=== PATIENT | male | born 1970 | race Caucasian/White ===

== ENCOUNTER 2016-11-20 18:17 | Emergency (ER) | payer MEDICARE ==
[~2016-11-20] VITALS: Ht 190.5 cm; Wt 90.7 kg
[2016-11-20] MEDS ORDERED: GENVOYA TABLET1 EACH PO (18:41)
[2016-11-20] MEDS ORDERED: KLONOPIN2 MG PO (18:41)
[2016-11-20] MEDS ORDERED: VENTOLIN HFA18 GM INH (18:41)
[2016-11-20] MEDS ORDERED: DULERA 100 MCG/13 GM INH (18:41)
[2016-11-20 18:49] VITALS: BP 139/92
[2016-11-20] MEDS ORDERED: CLARITIN-D 241 EACH PO (19:21)
[2016-11-20] MEDS ORDERED: FLONASE ALLERG9.9 ML NS (19:21)
[2016-11-20 19:25] VITALS: BP 139/92
--- NOTE | 2016-11-20 21:30 | Emergency Room Report ---
History of Present Illness General Chief Complaint: Upper Respiratory Illness Source: Patient (VERONICA BOTELLO) Present Illness HPI The patient is a 45-year-old male with a history of HIV, asthma, and seasonal allergies presenting for nasal congestion and cough. The cough is described as productive and produces a white sputum. The patient denies any other symptoms including fever, chills, headache, neck pain or stiffness, rash, shortness of breath, chest pain, night sweats, myalgia. Patient denies any sick contacts or recent travel. (VERONICA [email or web address]) Allergies: Coded Allergies: CIPROFLOXACIN (Verified Allergy, Unknown, 11/20/16) LEVOFLOXACIN (Verified Allergy, Unknown, 11/20/16) Patient History Past Medical History: see triage record Pertinent Family History: none Reviewed Nursing Documentation: PMH: Agreed, PSxH: Agreed (VERONICA [email or web address]) Nursing Documentation-PMH Hx Asthma: Yes (VERONICA [email or web address].Semaj) Review of Systems All Other Systems: negative except mentioned in HPI (VERONICA BOTELLO P.ANenita) Physical Exam Vital Signs Date Time Temp Pulse Resp B/P Pulse Ox O2 Delivery O2 Flow Rate FiO2 11/20/16 18:34 97.9 87 16 139/92 99 Room Air Sp02 EP Interpretation: reviewed, normal General Appearance: no apparent distress, alert, GCS 15, non-toxic Head: normocephalic, atraumatic Eyes: bilateral eye PERRL, bilateral eye normal inspection ENT: hearing grossly normal, normal pharynx, no angioedema, normal voice, TMs + canals normal, uvula midline, nasal congestion Neck: full range of motion, supple/symm/no masses Respiratory: chest non-tender, lungs clear, normal breath sounds, no wheezing, speaking full sentences Cardiovascular #1: regular rate, rhythm, no edema Musculoskeletal: back normal, gait/station normal, normal range of motion, non- tender Neurologic: alert, oriented x3, responsive, motor strength/tone normal, sensory intact, speech normal Psychiatric: judgement/insight normal, memory normal, mood/affect normal, no suicidal/homicidal ideation Skin: normal color, no rash, warm/dry, well hydrated Lymphatic: no adenopathy (VERONICA [email or web address]) Medical Decision Making PA Attestation Dr. Oliveira is my supervising physician. Patient management was discussed with my supervising physician (VERONICA BOTELLO) Diagnostic Impression: Primary Impression: Allergic rhinitis ER Course The patient is a 45-year-old male with a history of HIV, asthma, and seasonal allergies presenting for nasal congestion and cough. Differential diagnosis include but not limited to pharyngitis, sinusitis, AOM, bronchitis, PNA, allergies PE: vitals WNL. NAD. HEENT: + nasal DC. No tonsillar edema, erythema, exudate. No lymphad. Lungs CTA bilat. CXR unremarkable. Pt will be treated with Flonase and Claritin. ER precautions given. (VERONICA BOTELLO) ER Course Scribe documentation reviewed by me and is accurate. (Toan Oliveira M.D.) Chest X-Ray Diagnostic Results EP Interpretation: Yes Findings: no consolidation, no effusion, no pneumothorax, no acute cardiopulmonary disease Number of Views: 1 PA Scribe Text I am acting as scribe for my supervising physician. My supervising physician's interpretation of the chest xrays are there is no consolidation, no effusion, no acute cardiopulmonary disease, no pneumothorax (VERONICA BOTELLO) Last Vital Signs Date Time Temp Pulse Resp B/P Pulse Ox O2 Delivery O2 Flow Rate FiO2 11/20/16 19:25 97.9 81 16 139/92 99 Room Air Status: improved (VERONICA BOTELLO P.A.) Disposition: HOME, SELF-CARE Condition: Improved Scripts Loratadine/Pseudoephedrine (CLARITIN-D 24 HOUR TABLET) 1 Each Tab.er.24h 1 TAB PO DAILY, #30 TAB Prov: TERZIAN,VERONICA P.A. 11/20/16 Fluticasone Propionate (Flonase Allergy Relief) 9.9 Ml [place].susp 1 SPRAYS NS DAILY, #10 ML Prov: TERZIAN,VERONICA P.A. 11/20/16 Patient Instructions: Allergic Rhinitis Additional Instructions: I discussed my findings with the patient. All questions and concerns have been answered. Treatment and medication compliance have been addressed. I advised the patient that they need to follow up with PMD in 3-5 days. Return to ED if symptoms worsen, new symptoms arise, or if needed for any reason. Patient verbalized understanding of discharge instructions. VERONICA BOTELLO Nov 20, 2016 21:30 Toan Oliveira M.D. Nov 25, 2016 02:06
--- NOTE | 2016-11-21 10:54 | Diagnostic Imaging Report ---
Indication: Cough Technique: XRAY CHEST 1 V Comparison: 02/21/12 Findings: Cardiomediastinal silhouette is within normal limits. There is no consolidation or pleural effusion. There is a 9 mm nodular density projecting over the left base. Osseous structures are grossly stable. Impression: No acute cardiopulmonary disease. Approximately 9 mm nodular density projecting over the left base possibly a nipple shadow. Followup with nipple markers recommended.
== END 2016-11-20 19:25 | disposition home or self-care (01) ==
LOC: EMR 18:59
DX: J30.9 Allergic rhinitis, unspecified (principal); J45.909 Unspecified asthma, uncomplicated; Z88.1 Allergy status to other antibiotic agents
CPT/HCPCS: 71010; 99284

== ENCOUNTER 2018-11-12 14:04 | Emergency (ER) | payer MEDICARE ==
[~2018-11-12] VITALS: Ht 188 cm; Wt 82.6 kg
[~2018-11-12 14:04] MED LIST: CLARITIN-D 241 EACH PO; DULERA 100 MCG/13 GM INH; FLONASE ALLERG9.9 ML NS; GENVOYA TABLET1 EACH PO; KLONOPIN2 MG PO; VENTOLIN HFA18 GM INH
[2018-11-12] MEDS ORDERED: ADDERAL20 MG ORAL (14:16)
[2018-11-12 14:22] VITALS: BP 130/90
[2018-11-12] MEDS ORDERED: Bicillin LA 2.4MMU/4ML SYR IM ONE (14:30)
--- NOTE | 2018-11-12 14:35 | Emergency Room Report ---
History of Present Illness General Chief Complaint: Male Urogenital Problems Source: Patient Present Illness HPI 47-year-old male patient presents the ER complaining of reported positive syphilis test. Reports that he was informed by his primary care yesterday that he tested positive for syphilis. Reports history of HIV, states that his CD4 count is elevated and his viral load is undetectable, states he takes the medication as instructed. Reports that he his anal receptive. Reports that he has skin lesions around his buttock and genitals that are painful. Also reports history of eczema all over his body. Reports eczema occurs during times of stress. Denies fever, chest pain, shortness of breath. Reports mild dysuria. Denies penile discharge contrary to triage report. Denies hematuria. Denies abdominal pain. Denies vomiting or diarrhea. Allergies: Coded Allergies: CIPROFLOXACIN (Verified Allergy, Unknown, 11/20/16) LEVOFLOXACIN (Verified Allergy, Unknown, 11/20/16) Patient History Past Medical History: see triage record Reviewed Nursing Documentation: PMH: Agreed; PSxH: Agreed Nursing Documentation-PMH Past Medical History: No History, Except For Hx Asthma: Yes Review of Systems All Other Systems: negative except mentioned in HPI Physical Exam Vital Signs Date Time Temp Pulse Resp B/P (MAP) Pulse Ox O2 Delivery O2 Flow Rate FiO2 11/12/18 14:10 98.1 94 16 138/95 98 Room Air Sp02 EP Interpretation: reviewed, normal General Appearance: well appearing, no apparent distress, alert, GCS 15, non- toxic Head: normocephalic, atraumatic Eyes: bilateral eye normal inspection, bilateral eye PERRL ENT: hearing grossly normal, normal pharynx, no angioedema, normal voice, uvula midline, moist mucus membranes Neck: full range of motion Respiratory: lungs clear, normal breath sounds, no rhonchi, no respiratory distress, no accessory muscle use, no wheezing, speaking full sentences Cardiovascular #1: regular rate, rhythm, no edema Gastrointestinal: non tender, soft, no mass, non-distended, no guarding, no rebound Genitourinary: no CVA tenderness Musculoskeletal: back normal, digits/nails normal, gait/station normal, normal range of motion, non-tender Neurologic: alert, oriented x3, responsive, motor strength/tone normal, sensory intact Skin: other - Generalized eczema all over her body, no surrounding erythema or edema, no red streaking, no central clearing; red beefy intertrigo rash on gluteal with scalloped borders, no surrounding erythema or edema; no chancre Medical Decision Making PA Attestation Dr. Viramontes is my supervising Physician whom patient management has been discussed with. Diagnostic Impression: Primary Impression: Exposure to syphilis Additional Impressions: Acute eczema Dysuria ER Course Pt. presents to the ED c/o rash and syphilis exposure. Ddx considered but are not limited to atopic dermatitis, scabies, shingles, hives, urticaria, angiodema, allergic reaction, impetigo. Vital signs: are WNL, pt. is afebrile Ordered medication. ER COURSE Spoke with patient physician on the phone, previous test positive for syphilis, will provide patient with penicillin, does not require further workup or evaluation. Provided with IM penicillin in ER. Generalized rash over body consistent with eczema. Will provide patient with hydrocortisone. Did not apply to face or skin creases. Follow-up with dermatology. Likely intertrigo noted in the gluteal crease, will provide patient with nystatin. Advised to follow-up with dermatology. Followup with dermatology. Patient complaining of dysuria however states he is not able to provide a urine sample at this time. Denies abdominal pain, no flank pain, does not require CT imaging or labs at this time. Advised patient to follow-up with primary care provider and take urine sample with him to be tested at the time. Provide patient with urine cup. Informed patient may return to ER if able to provide urine sample at a later date. Denies penile discharge, hematuria. Advised to take Tylenol for pain. DISCHARGE: -Rx given for Hydrocortisone. Do not apply to face or skin creases. Apply for two weeks on and then one week off. -Rx given for Nystatin At this time pt. is stable for d/c to home. Patient resting comfortably, in no acute distress, nontoxic appearinge. Will provide printed patient care instructions, and any necessary prescriptions. Care plan and follow up instructions have been discussed with the patient prior to discharge. Patient provided with list of healthcare clinics to establish primary care physician. Patient instructed to follow-up with primary care provider in 3 - 5 days. Patient questions asked and answered. ER precautions given. Patient instructed to return to ER immediately for any new or worsening of symptoms including but not limited to increasing SOB, persistent fever. - Please note that this Emergency Department Report was dictated using [employer] technology software, occasionally this can lead to erroneous entry secondary to interpretation by the dictation equipment. Last Vital Signs Date Time Temp Pulse Resp B/P (MAP) Pulse Ox O2 Delivery O2 Flow Rate FiO2 11/12/18 14:22 98.1 78 20 130/90 98 Room Air Disposition: HOME, SELF-CARE Condition: Stable Scripts Hydrocortisone 2% Cream (ANTI-ITCH 2% CREAM) Y Cr 28 GM TP BID for 14 Days, #28 GM Prov: Sarabjit Villegas 11/12/18 Nystatin* (NYSTATIN*) 15 Gm Cream..g. 1 APPLIC TOPIC BID for 14 Days, #15 GM Prov: Sarabjit Villegas 11/12/18 Patient Instructions: Dysuria, Eczema, Intertrigo, [id number], Syphilis Additional Instructions: Followup with primary care provider in 3 -5 days. Request referral to dermatology as needed. Do not scratch or itch. Apply cool compresses to affected area. Wash all clothes and bedding. Take medications as directed. Apply creams for 2 weeks on then 1 week off. Do not apply to face. Do not apply topical steroid medication to face or skin creases. Take urine sample to primary care provider for further testing and treatment. SE Benadryl drowsiness, do not take prior to drinking, driving, operating heavy machinery. Take Claritin during the day and Benadryl at night for itching symptoms. Patient questions asked and answered. ER precautions given, patient instructed to return to ER immediately for any new or worsening of symptoms. [facility] Sarabjit Villegas Nov 12, 2018 14:35
[2018-11-12] MEDS ORDERED: NYSTATIN15 GM TOPIC (15:22)
[2018-11-12] MEDS ORDERED: ANTI-ITCH28 G1 TP (15:22)
[2018-11-12 15:25] VITALS: BP 127/85
== END 2018-11-12 15:25 | disposition home or self-care (01) ==
LOC: EMR 14:45
DX: Z20.2 Contact with and (suspected) exposure to infections with a predominantly sexual mode of transmission (principal); L30.9 Dermatitis, unspecified; R30.0 Dysuria; Z88.1 Allergy status to other antibiotic agents; J45.909 Unspecified asthma, uncomplicated
CPT/HCPCS: 96372; 99283